=== PATIENT | female | born 1965 | race Caucasian/White ===

== ENCOUNTER 2017-08-30 04:50 | Emergency (ER) | payer BC ==
[~2017-08-30] VITALS: Ht 152.4 cm; Wt 67.7 kg
[~2017-08-30 04:50] MED LIST: ESTR1TAB19 PO; PRON INH
[2017-08-30 04:59] VITALS: BP 124/65
--- NOTE | 2017-08-30 05:03 | NUR ---
PT TAKEN TO BED 1
--- NOTE | 2017-08-30 05:29 | NUR ---
Patient being evaluated by physician at bedside.
--- NOTE | 2017-08-30 05:29 | NUR ---
PT C/O GENERALIZED BODY PAIN X3 DAYS , WAS SEEN IN ER ON 08/28/17. PT STATES PAIN IS 10/10, SHARP PAIN, PT STATES PAIN IN BACK IS THE WORST. PT DENIES N/V/D. PT TOOK TYLENOL W/ NO RELIEF . PMH ASTHMA
[2017-08-30] MEDS ORDERED: ACETAMINOPHEN 160 MG/5 ML UDC PO ONE (05:40)
[2017-08-30] MEDS ORDERED: IBUPROFEN CHILDRENS 100 MG/5 ML UDC PO ONE (05:40)
[2017-08-30] MEDS ORDERED: KETOROLAC 60 MG/2 ML VIAL IM ONE (05:40)
[2017-08-30 07:01] VITALS: BP 103/50
--- NOTE | 2017-08-30 07:01 | NUR ---
Patient discharged with v/s stable. Written and verbal after care instructions given and explained. Patient alert, oriented and verbalized understanding of instructions. Ambulatory with to car. All questions addressed prior to discharge. ID band removed. Patient advised to follow up with PMD. Rx of ibuprofen, norco given. Patient educated on indication of medication including possible reaction and side effects. Opportunity to ask questions provided and answered.
== END 2017-08-30 07:01 | disposition home or self-care (01) ==
LOC: MED 04:50
DX: A08.4 Viral intestinal infection, unspecified (principal); M79.1 Myalgia; J45.909 Unspecified asthma, uncomplicated; Z79.899 Other long term (current) drug therapy; Z91.040 Latex allergy status
CPT/HCPCS: 72100; 96372; 99284; J1885

== ENCOUNTER 2018-05-02 21:26 | Emergency (ER) | payer BC ==
[~2018-05-02] VITALS: Ht 152.4 cm; Wt 68.5 kg
[2018-05-02 21:39] VITALS: BP 140/88
--- NOTE | 2018-05-02 21:59 | NUR ---
PT TO ER BED 10
--- NOTE | 2018-05-02 21:59 | NUR ---
Patient to bed 10. RN evaluating patient at bedside.
--- NOTE | 2018-05-02 22:00 | NUR ---
52 Y/O F W/C/O HEADACHE X1 MONTH TO OCCIPTAL AREA; CHEST PAIN X1300, RADAIATING TO LEFT ARM AND BACK OF NECK; PT LEFT [facility] TO COME HERE; PT HAD HEAD CT DONE, EKG, LABS AND STATES THEY GAVE HER SOMETHING FOR PAIN BUT SHE CONTINUED TO HAVE A HEADACHE AND LEFT. PT DENIES N/V/D; SKIN IS INTACT, PINK/WARM/DRY; AAOX4, PERRL, WITH EVEN AND STEADY GAIT; LUNGS CLEAR BL, BREATHING UNLABORED; HR EVEN AND REGULAR, BL PERIPHERAL PULSES PRESENT; BS ACTIVE X4, NO TENDERNESS TO PALPATION, NO HEPATOSPLENOMEGALLY PALPATED, RESONANT TO PERCUSSION; PT DENIES ANY FEVER, SOB, OR COUGH AT THIS TIME; PT STATES 10/10 PAIN AT THIS TIME; VSS; PATIENT POSITIONED FOR COMFORT; HOB ELEVATED; BEDRAILS UP X2; BED DOWN.
--- NOTE | 2018-05-02 22:10 | NUR ---
PT LYING IN BED, PAIN IS 10/10. VITALS STABLE. MD MADE AWARE OF STATUS.
--- NOTE | 2018-05-02 22:16 | NUR ---
Dr. Matson evaluating patient at bedside.
[2018-05-02] MEDS ORDERED: diphenhydrAMINE 50 MG/ML VIAL IM ONE (22:40)
[2018-05-02] MEDS ORDERED: KETOROLAC 60 MG/2 ML VIAL IM ONE (22:40)
[2018-05-02] MEDS ORDERED: PROCHLORPERAZINE 5 MG TAB PO ONE (22:40)
--- NOTE | 2018-05-02 22:53 | NUR ---
PT REFUSED BENADRYL AT THIS TIME. PT STATES, "IT GIVES ME ANXIETY, DON'T GIVE ME THAT."
[2018-05-02 23:30] VITALS: BP 140/88
--- NOTE | 2018-05-02 23:30 | NUR ---
Patient discharged with v/s stable. Written and verbal after care instructions given and explained. Patient alert, oriented and verbalized understanding of instructions. Ambulatory with steady gait. All questions addressed prior to discharge. ID band removed. Patient advised to follow up with PMD. Rx of TRAMADOL AND MOTRIN WERE given. Patient educated on indication of medication including possible reaction and side effects. Opportunity to ask questions provided and answered.
== END 2018-05-02 23:30 | disposition home or self-care (01) ==
LOC: MED 21:26
DX: S29.011A Strain of muscle and tendon of front wall of thorax, initial encounter (principal); S16.1XXA Strain of muscle, fascia and tendon at neck level, initial encounter; R51 Headache; J45.909 Unspecified asthma, uncomplicated; Z91.040 Latex allergy status; Z79.899 Other long term (current) drug therapy; X58.XXXA Exposure to other specified factors, initial encounter; Y93.89 Activity, other specified; Y92.89 Other specified places as the place of occurrence of the external cause; Y99.8 Other external cause status
CPT/HCPCS: 93005; 96372; 99283; J1885; Q0164; J1200

== ENCOUNTER 2019-01-06 20:40 | Emergency (ER) | payer BC ==
[~2019-01-06] VITALS: Ht 152.4 cm; Wt 69.9 kg
[2019-01-06 21:00] VITALS: BP 116/95
--- NOTE | 2019-01-06 21:08 | NUR ---
PT AMBULATED TO BED #10
--- NOTE | 2019-01-06 21:12 | NUR ---
FLU SWAB WAS DONE
--- NOTE | 2019-01-06 21:13 | NUR ---
Dr. Cisneros examining patient.
[2019-01-06] MEDS ORDERED: ONDANSETRON 4 MG/2 ML VIAL IVP ONE (21:15)
[2019-01-06] MEDS ORDERED: KETOROLAC 30 MG/ML VIAL IVP ONE (21:15)
[2019-01-06] MEDS ORDERED: NACL 0.9% 1,000 ML IV ONE (21:15)
--- NOTE | 2019-01-06 21:29 | NUR ---
PT TO ED WITH C/O GENERALIZED BODY ACHES WITH N/V X 1 DAY. PT DENIES ANY SOB, CP. ABD IS SOFT NON TENDER, NO OBVIOUS DEFORMITY NOTED. BOWEL SOUNDS ACTIVE. PT PLACED INTO BED, PENDING MD GOODSON.
[2019-01-06 21:48] LABS: BILIRUBIN,URINE NEGATIVE (NEGATIVE); BLOOD, URINE NEGATIVE (NEGATIVE); COLOR,URINE YELLOW (YELLOW); LEUKOCYTE ESTERASE ,URINE 1+ (NEGATIVE); NITRITE, URINE NEGATIVE (NEGATIVE); UGLUCOSE NEGATIVE (NEGATIVE)
[2019-01-06 21:49] LABS: BASOPHILS % (AUTO) 0.1 % (0.0-2.0); EOSINOPHILS % (AUTO) 0.1 % (0.0-4.0); HEMATOCRIT 40.3 % (36-48); HEMOGLOBIN 13.5 g/dL (12.0-16.0); LYMPHOCYTES # (AUTO) 0.9 K/uL (2.5-16.5); MEAN CORPUSCULAR HEMOGLOBIN 29 pg (27-31); MEAN CORPUSCULAR HGB CONC 34 g/dL (33-37); MEAN CORPUSCULAR VOLUME 86.6 fL (80-94); MONOCYTES # (AUTO) 0.4 K/uL (0.8-1.0); MONOCYTES % (AUTO) 2.9 % (1.7-9.3); NEUTROPHILS % (AUTO) 89.5 % (42.2-75.2); PLATELET COUNT (AUTO) 302 K/uL (140-450); RED BLOOD CELL COUNT(AUTO) 4.65 MIL/uL (4.20-5.40); RED CELL DISTRIBUTION WIDTH 13.5 % (11.6-13.7); WHITE BLOOD COUNT (AUTO) 12.3 K/uL (4.8-10.8)
[2019-01-06 22:00] LABS: APPEARANCE,URINE HAZY (CLEAR)
--- NOTE | 2019-01-06 22:00 | NUR ---
PT REPORTS RELIEF OF SYMPTOMS POST S [employer]ER
[2019-01-06 22:04] LABS: ALBUMIN 3.5 g/dL (3.4-5.0); ANION GAP 15.1 (8-16); CARBON DIOXIDE 23.6 mmol/L (21-32); CREATININE 0.7 mg/dL (0.6-1.3); POTASSIUM 3.7 mmol/L (3.5-5.1); TOTAL BILIRUBIN 0.4 mg/dL (0.0-1.0)
[2019-01-06 22:20] LABS: LYMPHOCYTES % (AUTO) 7.4 % (20.5-51.1)
[2019-01-06 22:22] LABS: RBC,URINE 0-5 /HPF (0-5); WBC,URINE 16-25 (MOD) /HPF (0-5)
[2019-01-06] MEDS ORDERED: cefTRIAXone 1,000 MG in LIDOCAINE MPF 1% - 5 mL VIAL 2.1 ML IM ONE (22:35)
--- NOTE | 2019-01-06 23:10 | NUR ---
IV removed, catheter intact and site benign. Applied folded 4x4 gauze and tape to stop bleeding.
--- NOTE | 2019-01-06 23:11 | NUR ---
Patient discharged with v/s stable. Written and verbal after care instructions given and explained. Patient alert, oriented and verbalized understanding of instructions. Ambulatory with steady gait. All questions addressed prior to discharge. ID band removed. Patient advised to follow up with PMD. Rx of MOTRIN, MACROBID given. Patient educated on indication of medication including possible reaction and side effects. Opportunity to ask questions provided and answered.
[2019-01-06 23:13] VITALS: BP 119/84
== END 2019-01-06 23:11 | disposition home or self-care (01) ==
LOC: MED 20:40
DX: N39.0 Urinary tract infection, site not specified (principal); R19.7 Diarrhea, unspecified; J45.909 Unspecified asthma, uncomplicated; Z91.040 Latex allergy status; Z79.899 Other long term (current) drug therapy
CPT/HCPCS: 36415; 80053; 81001; 85025; 87086; 87804; 96361; 96372; 96374; 96375; 99283; J0696; J1885; J2001; J2405; J7030

== ENCOUNTER 2020-05-02 10:53 | Emergency (ER) | payer BC ==
[~2020-05-02] VITALS: Ht 182.9 cm; Wt 70.3 kg
[2020-05-02 10:57] VITALS: BP 120/98
--- NOTE | 2020-05-02 11:08 | NUR ---
Pt ambulated to bed 12
--- NOTE | 2020-05-02 11:09 | NUR ---
54 y/o female from home c/o epigastric pain and 2 episodes of diarrhea since 0300 today. Denies vomiting/nausea. States she took Omeprazole for acid reflux with no relief. 8/10 sharp pain. Denies urinary symptoms. Pt awake and alert. VSS medhx: acid reflux, arthritis, asthma
--- NOTE | 2020-05-02 11:20 | NUR ---
Ultrasound at bedside
--- NOTE | 2020-05-02 11:25 | NUR ---
20G IV placed to left AC, blood drawn and given to front desk clerk at this time.
[2020-05-02 11:34] LABS: BASOPHILS # (AUTO) 0.1 K/uL (0.00-0.22); BASOPHILS % (AUTO) 0.5 % (0.0-2.0); EOSINOPHILS # (AUTO) 0.1 K/uL (0-0.4); EOSINOPHILS % (AUTO) 0.5 % (0.0-4.0); HEMATOCRIT 39.2 % (36-48); HEMOGLOBIN 13.4 g/dL (12.0-16.0); LYMPHOCYTES # (AUTO) 3.2 K/uL (2.5-16.5); LYMPHOCYTES % (AUTO) 29.7 % (20.5-51.1); MEAN CORPUSCULAR HEMOGLOBIN 30 pg (27-31); MEAN CORPUSCULAR HGB CONC 34 g/dL (33-37); MEAN CORPUSCULAR VOLUME 87.4 fL (80-94); MONOCYTES # (AUTO) 0.7 K/uL (0.8-1.0); MONOCYTES % (AUTO) 6.3 % (1.7-9.3); NEUTROPHILS # (AUTO) 6.7 K/uL (1.8-7.7); PLATELET COUNT (AUTO) 334 K/uL (140-450); RED BLOOD CELL COUNT(AUTO) 4.49 MIL/uL (4.20-5.40); RED CELL DISTRIBUTION WIDTH 13.5 % (11.6-13.7); WHITE BLOOD COUNT (AUTO) 10.7 K/uL (4.8-10.8)
[2020-05-02] MEDS: ONDANSETRON 4 MG/2 ML VIAL IVP ONE (11:34)
[2020-05-02] MEDS: KETOROLAC 15 MG/ML VIAL IVP ONE (11:34)
[2020-05-02] MEDS: FAMOTIDINE 20 MG/2 ML VIAL IVP ONE (11:35)
--- NOTE | 2020-05-02 11:40 | NUR ---
Pts , Guy-- [phone] Call for updates.
--- NOTE | 2020-05-02 12:16 | NUR ---
Pt states decrease in pain after medication. Positioned for comfort. VSS. Will continue to monitor
[2020-05-02 12:29] LABS: ALBUMIN 3.4 g/dL (3.4-5.0); ANION GAP 13.2 (8-16); CARBON DIOXIDE 25.4 mmol/L (21-32); CREATININE 0.8 mg/dL (0.6-1.3); POTASSIUM 3.6 mmol/L (3.5-5.1); TOTAL BILIRUBIN 0.3 mg/dL (0.0-1.0)
--- NOTE | 2020-05-02 12:40 | NUR ---
Patient discharged with v/s stable. Written and verbal after care instructions given and explained. Patient alert, oriented and verbalized understanding of instructions. Ambulatory with steady gait. All questions addressed prior to discharge. ID band removed. Patient advised to follow up with PMD. Rx of Pepcid 40mg, Zofran 4mg, and Peyton 5-325mg given. Patient educated on indication of medication including possible reaction and side effects. Opportunity to ask questions provided and answered.
--- NOTE | 2020-05-02 12:40 | NUR ---
IV discontinued, 2x2 gauze placed and bleeding controlled.
[2020-05-02 12:41] VITALS: BP 120/98
== END 2020-05-02 12:40 | disposition home or self-care (01) ==
LOC: MED 10:53
DX: K21.9 Gastro-esophageal reflux disease without esophagitis (principal); R03.0 Elevated blood-pressure reading, without diagnosis of hypertension; J45.909 Unspecified asthma, uncomplicated; M19.90 Unspecified osteoarthritis, unspecified site; Z91.040 Latex allergy status; Z90.49 Acquired absence of other specified parts of digestive tract
CPT/HCPCS: 36415; 76705; 80053; 81002; 81025; 83690; 85025; 93005; 96374; 96375; 99285; J1885; J2405; J3490; Q0092

== ENCOUNTER 2022-08-24 18:19 | Emergency (ER) | payer BC ==
[~2022-08-24] VITALS: Ht 160 cm; Wt 69.9 kg
[2022-08-24 18:23] VITALS: BP 152/80
--- NOTE | 2022-08-24 18:31 | NUR ---
PT C/O PRODUCTIVE COUGH X1 MONTH, SPEAKING IN FULL SENTENCES 99% RA.
--- NOTE | 2022-08-24 18:37 | NUR ---
56/F WALKED IN C/O PRODUCTIVE COUGH [id number]. AFEBRILE AT THIS TIME. NO ACUTE DISTRESS NOTED. VSS
[2022-08-24] MEDS ORDERED: MUC600 PO (19:35)
[2022-08-24] MEDS ORDERED: BENZ200C4 PO (19:35)
[2022-08-24 19:47] VITALS: BP 131/87
== END 2022-08-24 19:47 | disposition home or self-care (01) ==
LOC: MED 18:19
DX: J20.9 Acute bronchitis, unspecified (principal); J45.909 Unspecified asthma, uncomplicated; K21.9 Gastro-esophageal reflux disease without esophagitis
CPT/HCPCS: 99283

== ENCOUNTER 2022-08-28 13:50 | Emergency (ER) | payer BC ==
[~2022-08-28] VITALS: Ht 152.4 cm; Wt 72.6 kg
[~2022-08-28 13:50] MED LIST changes: +BENZ200C4 PO; +MUC600 PO
[2022-08-28 14:06] VITALS: BP 147/112
[2022-08-28] MEDS ORDERED: KETOROLAC 30 MG/ML VIAL IM ONE (14:10)
--- NOTE | 2022-08-28 14:12 | NUR ---
pt wheelchair assisted to bed 02
--- NOTE | 2022-08-28 14:30 | NUR ---
56 y/o female bib family from home, pt presents to ed with c/o sharp 10/10 upper back pain in relation to chronic dry cough for 1 mo. pt is a&ox4, ambulates with steady gait, pt states she is unable to ambulate due to the pain, but was able to ambulate to chair. lungs clear bl inspiratory and expiratory. no bruising, redness or trauma noted upon assessment. skin pink/warm/dry. pt denies any sob, cp, n/v/d, fever, chills or sick contacts at home. ermd made aware of pt. pmh: denies allergy: latex
[2022-08-28] MEDS ORDERED: DEXAMETHASONE 10 MG/ML VIAL IM ONE (14:45)
[2022-08-28] MEDS ORDERED: HYDROcodone/APAP 5/325 MG 1 TAB TAB PO ONE (15:05)
[2022-08-28] MEDS ORDERED: ACET-8905 PO (15:09)
[2022-08-28] MEDS ORDERED: DEXT15SY7 PO (15:09)
[2022-08-28 15:23] VITALS: BP 147/112
--- NOTE | 2022-08-28 15:23 | NUR ---
Patient discharged with v/s stable. Written and verbal after care instructions given and explained. Patient alert, oriented and verbalized understanding of instructions. Ambulatory with steady gait. All questions addressed prior to discharge. ID band removed. Patient advised to follow up with PMD. Rx of hydrocodone, tussin (sent) given. Patient educated on indication of medication including possible reaction and side effects. Opportunity to ask questions provided and answered. copy of imaging given
== END 2022-08-28 15:23 | disposition home or self-care (01) ==
LOC: MED 13:50
DX: M94.0 Chondrocostal junction syndrome [Tietze] (principal); J40 Bronchitis, not specified as acute or chronic; M54.9 Dorsalgia, unspecified; J45.909 Unspecified asthma, uncomplicated; K21.9 Gastro-esophageal reflux disease without esophagitis; Z79.899 Other long term (current) drug therapy; Z91.040 Latex allergy status
CPT/HCPCS: 71045; 96372; 99284; J1100; J1885; Q0092

== ENCOUNTER 2023-05-01 07:57 | Emergency (ER) | payer BC ==
[~2023-05-01] VITALS: Ht 152.4 cm; Wt 72.6 kg
[~2023-05-01 07:57] MED LIST changes: +ACET-8905 PO; +DEXT15SY7 PO
[2023-05-01 08:02] VITALS: BP 133/64; PULSE 72; RESP 18; TEMP 97.1; O2SAT 99
[2023-05-01 08:48] LABS: APPEARANCE,URINE CLEAR (CLEAR); BILIRUBIN,URINE NEGATIVE (NEGATIVE); BLOOD, URINE TRACE-I (NEGATIVE); COLOR,URINE YELLOW (YELLOW); LEUKOCYTE ESTERASE ,URINE TRACE (NEGATIVE); NITRITE, URINE NEGATIVE (NEGATIVE); PROTEIN,URINE NEGATIVE (NEGATIVE); UGLUCOSE NEGATIVE (NEGATIVE); UROBILINOGEN,URINE 0.2 EU/dL (0.2 - 1)
[2023-05-01 08:57] LABS: BASOPHILS % (AUTO) 0.6 % (0.0-2.0); EOSINOPHILS # (AUTO) 0.3 K/uL (0-0.4); EOSINOPHILS % (AUTO) 4.1 % (0.0-4.0); HEMATOCRIT 40.8 % (36-48); LYMPHOCYTES # (AUTO) 1.9 K/uL (2.5-16.5); LYMPHOCYTES % (AUTO) 22.2 % (20.5-51.1); MEAN CORPUSCULAR HEMOGLOBIN 30 pg (27-31); MEAN CORPUSCULAR HGB CONC 34 g/dL (33-37); MEAN CORPUSCULAR VOLUME 86.8 fL (80-94); MONOCYTES # (AUTO) 0.5 K/uL (0.8-1.0); MONOCYTES % (AUTO) 6.1 % (1.7-9.3); NEUTROPHILS # (AUTO) 5.6 K/uL (1.8-7.7); PLATELET COUNT (AUTO) 335 K/uL (140-450); RED CELL DISTRIBUTION WIDTH 13.5 % (11.6-13.7); WHITE BLOOD COUNT (AUTO) 8.4 K/uL (4.8-10.8)
[2023-05-01 09:21] LABS: ALBUMIN 3.3 g/dL (3.4-5.0); ANION GAP 10.9 (8-16); CALCIUM 8.7 mg/dL (8.5-10.1); CARBON DIOXIDE 24.9 mmol/L (21-32); CREATININE 0.7 mg/dL (0.6-1.3); POTASSIUM 3.8 mmol/L (3.5-5.1); TOTAL BILIRUBIN 0.4 mg/dL (0.0-1.0); TOTAL PROTEIN, SERUM 6.9 g/dL (6.4-8.2)
[2023-05-01] MEDS ORDERED: LOPE1TAB14 PO ×2 (10:23→10:35)
[2023-05-01] MEDS ORDERED: [UNRECOGNIZED DRUG - CODE] PO ×2 (10:23→10:34)
[2023-05-01] MEDS ORDERED: IMO2 PO (10:35)
[2023-05-01 10:37] VITALS: BP 130/64; PULSE 72; RESP 18; TEMP 98; O2SAT 100
== END 2023-05-01 10:37 | disposition home or self-care (01) ==
LOC: MED 07:57
DX: R19.7 Diarrhea, unspecified (principal); R10.9 Unspecified abdominal pain; J45.909 Unspecified asthma, uncomplicated; K21.9 Gastro-esophageal reflux disease without esophagitis; Z79.899 Other long term (current) drug therapy
CPT/HCPCS: 36415; 80053; 81003; 83690; 85025; 99284

== ENCOUNTER 2023-12-18 20:03 | Emergency (ER) | payer BC ==
[~2023-12-18] VITALS: Ht 152.4 cm; Wt 72.6 kg
[~2023-12-18 20:03] MED LIST changes: +IMO2 PO; +LOPE1TAB14 PO; +[UNRECOGNIZED DRUG - CODE] PO
[2023-12-18 20:23] VITALS: BP 125/66; PULSE 69; RESP 16; TEMP 98; O2SAT 98
[2023-12-18] MEDS: HYDROcodone/APAP 7.5/325 MG 1 TAB PO ONE (22:02)
[2023-12-18] MEDS ORDERED: ACET-8905 PO (22:11)
== END 2023-12-18 22:14 | disposition home or self-care (01) ==
LOC: MED 20:03
DX: S41.031A Puncture wound without foreign body of right shoulder, initial encounter (principal); J45.909 Unspecified asthma, uncomplicated; K21.9 Gastro-esophageal reflux disease without esophagitis; Z91.040 Latex allergy status; Z79.899 Other long term (current) drug therapy; X58.XXXA Exposure to other specified factors, initial encounter; Y93.89 Activity, other specified; Y92.89 Other specified places as the place of occurrence of the external cause; Y99.8 Other external cause status
CPT/HCPCS: 73030; 99283; Q0092